=== PATIENT | female | born 2000 | race African-American/Black ===

== ENCOUNTER 2021-02-08 12:53 | Emergency (ER) | payer SELFPAY ==
[~2021-02-08] VITALS: Ht 167.6 cm; Wt 90.9 kg
[2021-02-08 14:39] VITALS: BP 119/82
--- NOTE | 2021-02-08 15:11 | PHYS DOC ---
Past History Past Surgical History: No Surgical History (ERIC DAS APRN) Alcohol Use: None (ERIC DAS APRN) General Adult EDM: Chief Complaint: NAUSEA/VOMITING/DIARRHEA HPI: HPI: Patient is a 20-year-old female who presents to the emergency department today for frontal headache, nausea, vomiting, sore throat, photophobia, phonophobia, body aches, cough that started today. Patient has a history of headaches. Patient denies any sick exposures, fevers, shortness of breath. (ERIC DAS APRN) Review of Systems: Review of Systems: Constitutional: See HPI Eyes: See HPI HENT: See HPI Respiratory: See HPI GI: See HPI Musculoskeletal: See HPI Neurologic: See HPI (ERIC DAS APRN) Current Medications: Current Meds: Current Medications Medications (Trade) Dose Ordered Sig/Humza Start Time Stop Time Status Last Admin Dose Admin Diphenhydramine HCl (Benadryl) 25 mg 1X ONCE 02/08/21 15:15 02/08/21 15:16 UNV Ketorolac Tromethamine (Toradol 30mg Vial) 30 mg 1X ONCE 02/08/21 15:15 02/08/21 15:16 UNV Prochlorperazine Edisylate (Compazine) 10 mg 1X ONCE 02/08/21 15:15 02/08/21 15:16 UNV Sodium Chloride 1,000 ml @ 1,000 mls/hr 1X ONCE 02/08/21 15:15 02/08/21 16:14 UNV (ERIC DAS APRN) Allergies: Allergies: Allergies Coded Allergies Type Severity Reaction Last Updated Verified No Known Drug Allergies 02/08/21 No (ERIC DAS APRN) Physical Exam: PE: Constitutional: Well developed, well nourished, no acute distress, non-toxic appearance. [] HENT: Normocephalic, atraumatic, bilateral external ears normal, oropharynx moist, no oral exudates, plus tonsillar enlargement, erythematous oropharynx, no oral exudates, uvula midline, no trismus, no phonation changes, postnasal drainage noted, nose normal. [] Eyes: PERRL, 4 mm pupils bilaterally, EOMI, conjunctiva normal, no discharge. [] Neck: Normal range of motion, no tenderness, no nuchal rigidity, supple, no stridor. [] Cardiovascular:Heart rate regular rhythm, no murmur [] Lungs & Thorax: Bilateral breath sounds clear to auscultation [] Abdomen: Bowel sounds normal, soft, no tenderness, no masses, no pulsatile masses. [] Skin: Warm, dry, no erythema, no rash. [] Back: No tenderness, normal range of motion Extremities: No tenderness, no cyanosis, no clubbing, ROM intact, no edema. [] Neurologic: Alert and oriented X 3, normal motor function, normal sensory function, no focal deficits noted. [] Psychologic: Affect normal, judgement normal, mood normal. [] (ERIC DAS APRN) Current Patient Data: Labs: Laboratory Tests Test 02/08/21 15:46 Influenza Type A (Rapid) Negative Influenza Type B (Rapid) Negative Group A Streptococcus Rapid Negative Current Medications Medications (Trade) Dose Ordered Sig/Humza Route PRN Reason Start Time Stop Time Status Last Admin Dose Admin Diphenhydramine HCl (Benadryl) 25 mg 1X ONCE IVP 02/08/21 15:15 02/08/21 15:21 DC 02/08/21 15:41 Prochlorperazine Edisylate (Compazine) 10 mg 1X ONCE IV 02/08/21 15:15 02/08/21 15:21 DC 02/08/21 15:41 Ketorolac Tromethamine (Toradol 30mg Vial) 30 mg 1X ONCE IVP 02/08/21 15:15 02/08/21 15:21 DC 02/08/21 15:42 Sodium Chloride 1,000 ml @ 1,000 mls/hr 1X ONCE IV 02/08/21 15:15 02/08/21 16:14 DC 02/08/21 15:41 Vital Signs: Vital Signs Date Time Temp Pulse Resp B/P (MAP) Pulse Ox O2 Delivery O2 Flow Rate FiO2 02/08/21 14:39 98.8 86 16 119/82 (94) 100 Room Air (ERIC DAS APRN) EKG: EKG: [] (ERIC DAS APRN) Radiology/Procedures: Radiology/Procedures: [] (ERIC DAS APRN) Heart Score: C/O Chest Pain: N/A Risk Factors: Risk Factors: DM, Current or recent (<one month) smoker, HTN, HLP, family history of CAD, obesity. Risk Scores: Score 0 - 3: 2.5% MACE over next 6 weeks - Discharge Home Score 4 - 6: 20.3% MACE over next 6 weeks - Admit for Clinical Observation Score 7 - 10: 72.7% MACE over next 6 weeks - Early Invasive Strategies (ERIC DAS APRN) Course & Med Decision Making: Course & Med Decision Making Pertinent Labs and Imaging studies reviewed. (See chart for details) [] Patient presents to the emergency department for a frontal headache, sore throat, body aches, nausea, vomiting, cough, photophobia, phonophobia. Patient has a history of headaches. She denies any thunderclap headache. She has no meningeal signs. She denies any fevers she denies any neck stiffness. Patient be tested for COVID-19, influenza and strep. She will be treated with a migraine cocktail. Patient reports resolution of her symptoms following camila tment in the ER. Her rapid strep test was negative her rapid influenza test was negative. Patient was tested for COVID-19 and will be notified of those results when they become available in approximately 1 to 2 days. She is advised to self isolate until she receives these results. She was educated on symptomatic treatment. I discussed with patient all findings and diagnostic t esting as well as the need to follow-up with PCP for further evaluation and treatment or return to the ER if any new or worsening symptoms. Strict return precautions were also discussed at length. Patient voiced understanding and agreement with the plan. Patient is hemodynamically stable at the time of disposition. (ERIC DAS APRN) Dragon Disclaimer: Dragon Disclaimer: This electronic medical record was generated, in whole or in part, using a voice recognition dictation system. (ERIC DAS APRN) Attending Co-Sign The patient was seen and interviewed as well as examined at the bedside. The chart was reviewed. The case was discussed. Agree with the plan of care. (TERESA HARMAN DO) Departure Departure: Impression: Primary Impression: Person under investigation for COVID-19 Disposition: HOME / SELF CARE / HOMELESS Condition: GOOD Referrals: PCP,NO (PCP) Patient Instructions: General Headache Without Cause Additional Instructions: You were seen in the emergency department today for headache, nausea, sore throat, body aches and a cough. Your rapid influenza test was negative. Your rapid strep test was negative. We tested you in the ER for COVID-19 and you will be notified of those results when they become available in approximately 1 to 2 days. Please self isolate until you receive these results. For your pain you can take Tylenol and/or ibuprofen. For your nausea you are being discharged home with Zofran, take this as directed. Increase your fluids and rest. For your sore throat you can perform warm salt water gargles. For your cough we recommend Delsym [id number]. Follow-up with your primary care provider tomorrow regarding your ER visit. Please return to the emergency department if you develop worsening of your pain, intractable nausea or vomiting, high fevers refractory to treatment, difficulty swallowing or difficulty breathing, chest p ain. Scripts Ondansetron (ONDANSETRON ODT) 4 Mg Tab.rapdis 1 TAB PO PRN Q6-8HRS for nausea for 5 Days, #20 TAB 0 Refills Prov: ERIC DAS APRN 02/08/21 ERIC DAS APRN Feb 08, 2021 15:11 TERESA HARMAN DO Feb 09, 2021 07:15
[2021-02-08] MEDS ORDERED: PROCHLORPERAZINE 10 MG/2 ML VIAL. IV ONE (15:15)
[2021-02-08] MEDS ORDERED: KETOROLAC 30 MG/ML VIAL. IVP ONE (15:15)
[2021-02-08] MEDS ORDERED: IV NORMAL SALINE 1,000ML 1,000 ML IV ONE (15:15)
[2021-02-08] MEDS ORDERED: diphenhydrAMINE 50 MG/ML VIAL IVP ONE (15:15)
[2021-02-08 16:26] LABS: INFLUENZA A PATIENT NEGATIVE (NEGATIVE); INFLUENZA B PATIENT NEGATIVE (NEGATIVE)
[2021-02-08] MEDS ORDERED: ONDA4TAB12 PO (17:05)
== END 2021-02-08 17:26 | disposition home or self-care (01) ==
LOC: ER 12:53
DX: R51.9 Headache, unspecified (principal); R11.2 Nausea with vomiting, unspecified; J02.9 Acute pharyngitis, unspecified; Z20.822 Contact with and (suspected) exposure to COVID-19
CPT/HCPCS: 87070; 87804; 87880; 96361; 96374; 96375; 99284; C9803; J0780; J1200; J1885; J7030; U0003